=== PATIENT | female | born 1980 | race African-American/Black ===

== ENCOUNTER 2019-07-28 18:45 | Emergency (ER) | payer OTHER, SELFPAY ==
[2019-07-28] MEDS ORDERED: MORPHINE 4 MG/ML SYR ONE (19:52)
[2019-07-28] MEDS ORDERED: ACETAMINOPHEN 500 MG TAB ONE (19:52)
[2019-07-28] MEDS ORDERED: ONDANSETRON 4 MG/2 ML VIAL ONE (19:52)
[2019-07-28] MEDS ORDERED: NA CHLORIDE 0.9% 1,000 ML ONE (19:52)
[2019-07-28 19:57] LABS: Urine Blood NEGATIVE (NEG); Urine Glucose NEGATIVE (NEG); Urine Protein NEGATIVE (NEG)
[2019-07-28 20:11] LABS: Urine Bacteria LOADED /HPF (<20); Urine Culture Reflex Order NOT NEEDED; Urine Mucus 1+ /HPF (NONE SEEN)
[2019-07-28 20:16] LABS: ALT/SGPT 15 U/L (12-78); AST/SGOT 11 U/L (15-37); Albumin 3.5 g/dL (3.4-5.0); Alkaline Phosphatase 59 U/L (45-117); BUN Blood Urea Nitrogen 9 mg/dL (7-18); Bicarbonate 24 mmol/L (21-32); Bilirubin Direct 0.1 mg/dL (0-0.2); Bilirubin Total 0.5 mg/dL (0.2-1.0); Glucose Level 100 mg/dL (74-106); Lipase 91 U/L (73-393); Potassium 3.6 mmol/L (3.5-5.1); Protein, Total 6.8 g/dL (6.4-8.2); Sodium Level 138 mmol/L (136-145)
[2019-07-28 20:34] LABS: Absolute Lymphocytes (CBC) 2.7 K/uL (0.7-4.9); Basophils % 0.3 % (0-1.3); Hematocrit 28.8 % (36.0-45.0); Lymphocytes % 22.3 % (15.3-44.8); MPV 7.8 fL (7.6-11.3); RBC Red Blood Cell Count 4.35 M/uL (3.86-4.86)
[2019-07-28 21:09] LABS: Blood Morphology Comment NOTED (NOT SEEN); Platelet Estimate ADEQ
[2019-07-28 21:10] LABS: Hypochromasia 2+
[2019-07-28] MEDS ORDERED: CEFTRIAXONE/SWI 1gm 1 GM/10 ML SYR ONE (21:23)
[2019-07-28] MEDS ORDERED: KETOROLAC 30 MG/ML INJ ONE (21:27)
[2019-07-29] MEDS ORDERED: MORPHINE 4 MG/ML SYR ONE (00:20)
--- NOTE | 2019-07-29 00:26 | ER ---
Nurse's Notes [facility] Name: Roxann Massey Age: 39 yrs Sex: Female : 1980 Arrival Date: 07/28/2019 Time: 18:47 Bed 5 Private MD: Diagnosis: Other and unspecified ovarian cysts Presentation: 07/28 18:57 Presenting complaint: Patient states: Left lower abdominal pain since this morning that ca1 is really bad. Took ibuprofen this morning, it helped for a few minutes then it comes back. Pain gets worse and worse, and goes to the back. I have not eaten the whole day too since it hurts when I eat. Reports nausea. Denies vomiting and diarrhea. Transition of care: patient was not received from another setting of care. Onset of symptoms was July 28, 2019. Risk Assessment: Do you want to hurt yourself or someone else? Patient reports no desire to harm self or others. Initial Sepsis Screen: Does the patient meet any 2 criteria? No. Patient's initial sepsis screen is negative. Does the patient have a suspected source of infection? No. Patient's initial sepsis screen is negative. Care prior to arrival: None. 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 - Social history:: Smoking status: Patient/guardian denies using tobacco. - Ebola Screening: : Patient negative for fever greater than or equal to 101.5 degrees Fahrenheit, and additional compatible Ebola Virus Disease symptoms Patient denies exposure to infectious person Patient denies travel to an Ebola-affected area in the 21 days before illness onset No symptoms or risks identified at this time. Screenin:39 Abuse screen: Denies threats or abuse. Denies injuries from another. Nutritional ao screening: No deficits noted. Tuberculosis screening: No symptoms or risk factors identified. Fall Risk None identified. Assessment: 19:37 General: Appears in no apparent distress. comfortable, Behavior is calm, cooperative, ao appropriate for age. Pain: Complains of pain in abdomen Pain does not radiate. Pain currently is 8 out of 10 on a pain scale. Neuro: Level of Consciousness is awake, alert, obeys commands, Oriented to person, place, time, situation, Appropriate for age Moves all extremities. Full function Speech is normal, Facial symmetry appears normal. Cardiovascular: Denies chest pain, shortness of breath. Respiratory: Airway is patent Respiratory effort is even, unlabored, Respiratory pattern is regular, symmetrical. GI: Abdomen is non-distended, Bowel sounds present X 4 quads. Abd is soft and non tender Abd is non tender. : No signs and/or symptoms were reported regarding the genitourinary system. EENT: No signs and/or symptoms were reported regarding the EENT system. Derm: Musculoskeletal: Circulation, motion, and sensation intact. Range of motion:. 20:20 Reassessment: Patient appears in no apparent distress at this time. Patient and/or ao family updated on plan of care and expected duration. Pain level reassessed. Recollecting labs. 21:49 Reassessment: Patient appears in no apparent distress at this time. Patient and/or ao family updated on plan of care and expected duration. Pain level reassessed. Patient out for CT. 22:55 Reassessment: Patient appears in no apparent distress at this time. Patient and/or ao family updated on plan of care and expected duration. Pain level reassessed. Waiting in dispo orders. 07/29 00:09 Reassessment: Patient appears in no apparent distress at this time. Patient and/or ao family updated on plan of care and expected duration. Pain level reassessed. Waiting on dispo orders. 00:15 Reassessment: Patient states pain to abdomen returning, Provider notified. lp1 Vital Signs: 07/28 19:01 BP 95 / 80; Pulse 98; Resp 17 S; Temp 101(O); Pulse Ox 100% on R/A; Weight 70.76 kg ca1 (R); Height 5 ft. 9 in. (175.26 cm) (R); Pain 10/10; 20:20 BP 121 / 79; Pulse 84; Resp 16; Pulse Ox 100% on R/A; ao 21:31 Temp 100.1(A); ao 22:53 BP 123 / 75; Pulse 60; Resp 18; Pulse Ox 100% on R/A; ao 07/29 00:09 BP 112 / 80; Pulse 63; Resp 16; Pulse Ox 100% ; ao 07/28 19:01 Body Mass Index 23.04 (70.76 kg, 175.26 cm) ca1 ED Course: 07/28 18:47 Patient arrived in ED. as 19:00 Triage completed. ca1 19:01 Arm band placed on right wrist. ca1 19:07 Kole Lange, GLORY is Primary Nurse. ao 19:19 Rodrigo Chávez MD is Attending Physician. tw4 19:38 Patient has correct armband on for positive identification. Pulse ox on. NIBP on. ao 19:58 Inserted saline lock: 20 gauge antecubital area, using aseptic technique. Blood ao collected. 21:[address] via wheelchair. eh 22:00 CT completed. Patient tolerated procedure well. Patient moved back from CT. eh 22:06 CT Abd/Pelvis - IV Contrast Only In Process Unspecified. EDMS 07/29 00:08 Ultrasound completed. Patient tolerated well. aa4 00:19 US Pelvis Complete In Process Unspecified. EDMS 00:25 Stephen Almonte MD is Referral Physician. tw4 00:25 Adilene Mckinney MD is Referral Physician. tw4 00:25 Katie Del Rosario MD is Referral Physician. tw4 00:52 No provider procedures requiring assistance completed. IV discontinued, intact, ao bleeding controlled, No redness/swelling at site. Pressure dressing applied. Administered Medications: 07/28 19:57 Drug: morphine 4 mg {Note: Rass 0.} Route: IVP; Site: right antecubital; ao 21:19 Follow up: Response: No adverse reaction; RASS: Alert and Calm (0) ao 19:57 Drug: Zofran 4 mg Route: IVP; Site: right antecubital; ao 21:18 Follow up: Response: No adverse reaction ao 19:57 Drug: NS 0.9% 1000 ml Route: IV; Rate: 1 bolus; Site: right antecubital; ao 21:19 Follow up: Response: No adverse reaction; IV Status: Completed infusion; IV Intake: ao 1000ml 19:57 Drug: Tylenol 1000 mg Route: PO; ao 21:31 Follow up: Temp 100.1 Axillary ao 21:29 Drug: Rocephin - (cefTRIAXone) 1 grams Route: IVPB; Infused Over: 30 mins; Site: right ao antecubital; 07/29 00:52 Follow up: IV Status: Completed infusion; IV Intake: 10ml ao 00:52 Follow up: Response: No adverse reaction ao 07/28 21:29 Drug: TORadol 30 mg Route: IVP; Site: right antecubital; ao 22:51 Follow up: Response: No adverse reaction ao 07/29 00:22 Drug: morphine 4 mg Route: IVP; Site: right antecubital; lp1 00:52 Follow up: Response: No adverse reaction ao 00:52 Follow up: Response: No adverse reaction ao Intake: 07/28 21:19 IV: 1000ml; Total: 1000ml. ao 07/29 00:52 IV: 10ml; Total: 1010ml. ao Outcome: 00:25 Discharge ordered by . tw4 00:52 Discharged to home ambulatory, with family, with significant other. ao 00:52 Condition: good 00:52 Discharge instructions given to patient. 00:53 Patient left the ED. ao Signatures: Dispatcher [employer] EDMS Olman Enamorado Amelia as Frazier, Amanda aa4 Kim Berumen RN RN lp1 Kole Lange RN RN Rodrigo Kirkpatrick MD MD tw4 Linda Batista RN RN ca1 Corrections: (The following items were deleted from the chart) 07/28 19:01 18:57 Presenting complaint: Patient states: Left lower abdominal pain since this ca1 morning that is really bad. Took ibuprofen this morning, it helped for a few minutes then it comes back. Pain gets worse and worse, and goes to the back. I have not eaten the whole day too since it hurts when I eat. Reports nausea. Denies vomiting. ca1
--- NOTE | 2019-07-29 00:27 | EDPHYS ---
Physician Documentation [facility] Name: Roxann Massey Age: 39 yrs Sex: Female : 1980 Arrival Date: 07/28/2019 Time: 18:47 Bed 5 Private MD: ED Physician Rodrigo Chávez HPI: 07/29 00:48 This 39 yrs old Black Female presents to ER via Wheelchair with complaints of Abdominal tw4 Pain, Back Pain. 00:48 The patient presents with abdominal pain. Onset: The symptoms/episode began/occurred tw4 today. The symptoms do not radiate. Associated signs and symptoms: none. The symptoms are described as sharp. Modifying factors: The symptoms are alleviated by nothing. Severity of pain: At its worst the pain was moderate in the emergency department the pain is unchanged. The patient has not experienced similar symptoms in the past. 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 - Social history:: Smoking status: Patient/guardian denies using tobacco. - Ebola Screening: : Patient negative for fever greater than or equal to 101.5 degrees Fahrenheit, and additional compatible Ebola Virus Disease symptoms Patient denies exposure to infectious person Patient denies travel to an Ebola-affected area in the 21 days before illness onset No symptoms or risks identified at this time. ROS: 07/29 00:48 Constitutional: Negative for fever, chills, and weight loss, Eyes: Negative for injury, tw4 pain, redness, and discharge, Cardiovascular: Negative for chest pain, palpitations, and edema, Respiratory: Negative for shortness of breath, cough, wheezing, and pleuritic chest pain, Back: Negative for injury and pain, MS/Extremity: Negative for injury and deformity, Skin: Negative for injury, rash, and discoloration, Neuro: Negative for headache, weakness, numbness, tingling, and seizure. Abdomen/GI: Positive for abdominal pain, Negative for nausea and vomiting, nausea, vomiting, and diarrhea, nausea, vomiting, abdominal cramps, abdominal distension, anorexia, black/tarry stool, rectal pain, rectal bleeding, bowel incontinence, flatulence. Exam: 00:48 Constitutional: This is a well developed, well nourished patient who is awake, alert, tw4 and in no acute distress. Head/Face: Normocephalic, atraumatic. Chest/axilla: Normal chest wall appearance and motion. Nontender with no deformity. No lesions are appreciated. Cardiovascular: Regular rate and rhythm with a normal S1 and S2. No gallops, murmurs, or rubs. Normal PMI, no JVD. No pulse deficits. Respiratory: Lungs have equal breath sounds bilaterally, clear to auscultation and percussion. No rales, rhonchi or wheezes noted. No increased work of breathing, no retractions or nasal flaring. 00:48 Abdomen/GI: Inspection: abdomen appears normal, Bowel sounds: normal. Vital Signs: 07/28 19:01 BP 95 / 80; Pulse 98; Resp 17 S; Temp 101(O); Pulse Ox 100% on R/A; Weight 70.76 kg ca1 (R); Height 5 ft. 9 in. (175.26 cm) (R); Pain 10/10; 20:20 BP 121 / 79; Pulse 84; Resp 16; Pulse Ox 100% on R/A; ao 21:31 Temp 100.1(A); ao 22:53 BP 123 / 75; Pulse 60; Resp 18; Pulse Ox 100% on R/A; ao 07/29 00:09 BP 112 / 80; Pulse 63; Resp 16; Pulse Ox 100% ; ao 07/28 19:01 Body Mass Index 23.04 (70.76 kg, 175.26 cm) ca1 MDM: 07/28 19:19 Patient medically screened. tw4 07/29 00:48 Differential diagnosis: diverticulitis, non-specific abd pain, Ovarian Torsion. Data tw4 reviewed: vital signs, nurses notes. Counseling: I had a detailed discussion with the patient and/or guardian regarding: the historical points, exam findings, and any diagnostic results supporting the discharge/admit diagnosis, lab results. 07/28 19:25 Order name: Basic Metabolic Panel tw4 07/28 19:25 Order name: CBC with Diff tw4 12/18 19:25 Order name: Creatinine for Radiology; Complete Time: 21:14 [facility] 07/28 21:15 Interpretation: Within normal limits: CRE 0.65. [facility] 07/28 19:25 Order name: Hepatic Function; Complete Time: 21:14 [facility] 07/28 21:14 Interpretation: Normal except: AST 11. [facility] 07/28 19:25 Order name: Lipase; Complete Time: 21:14 [facility] 07/28 21:15 Interpretation: Normal except: LIP 91. 07/28 19:25 Order name: Basic Metabolic Panel; Complete Time: 21:14 [facility] 07/28 21:15 Interpretation: Within normal limits. [facility] 07/28 19:25 Order name: CBC with Automated Diff; Complete Time: 21:14 [facility] 07/28 21:14 Interpretation: Normal except: WBC 12.2; HGB 8.8; HCT 28.8; MCV 66.1; MCH 20.2; MCHC tw4 30.5; RDW 17.2; NEUT A 8.8. 07/28 19:45 Order name: Urine Dipstick--Ancillary (enter results); Complete Time: 21:14 [facility] 07/28 21:14 Interpretation: Normal except: U NIT POSITIVE; UESTR 1+. [facility] 07/28 19:45 Order name: Urine --Ancillary (enter results); Complete Time: 21:14 [facility] 07/28 19:45 Order name: Urine Microscopic Only; Complete Time: 21:14 [facility] 07/28 21:15 Interpretation: Normal except: UBACT LOADED; URBC 5-10; UWBC 20-50; SQEPI 10-20. [facility] 07/28 19:45 Order name: Urine Culture [facility] 07/28 20:40 Order name: Manual Differential; Complete Time: 21:14 [facility] 07/28 21:15 Interpretation: Normal except: BANDS [F] 6. [facility] 07/28 21:25 Order name: CT Abd/Pelvis - IV Contrast Only [facility] 07/28 22:58 Order name: US Pelvis Complete 07/28 19:25 Order name: IV Saline Lock; Complete Time: 19:58 [facility] 07/28 19:25 Order name: Labs collected and sent; Complete Time: 19:58 [facility] 07/28 19:25 Order name: Urine Dipstick-Ancillary (obtain specimen); Complete Time: 19:51 tw4 07/28 19:25 Order name: Urine Test (obtain specimen); Complete Time: 19:51 tw4 Administered Medications: 07/2857 Drug: morphine 4 mg {Note: Rass 0.} Route: IVP; Site: right antecubital; ao 21:19 Follow up: Response: No adverse reaction; RASS: Alert and Calm (0) ao :57 Drug: Zofran 4 mg Route: IVP; Site: right antecubital; ao 21:18 Follow up: Response: No adverse reaction ao Drug: NS 0.9% 1000 ml Route: IV; Rate: 1 bolus; Site: right antecubital; ao 21: Follow up: Response: No adverse reaction; IV Status: Completed infusion; IV Intake: ao 1000ml Drug: Tylenol 1000 mg Route: PO; ao 21:31 Follow up: Temp 100.1 Axillary ao 21: Drug: Rocephin - (cefTRIAXone) 1 grams Route: IVPB; Infused Over: 30 mins; Site: right ao antecubital; 07/29 00:52 Follow up: IV Status: Completed infusion; IV Intake: 10ml ao 00:52 Follow up: Response: No adverse reaction ao 07/28 21:29 Drug: TORadol 30 mg Route: IVP; Site: right antecubital; ao 22:51 Follow up: Response: No adverse reaction ao 07/29 00:22 Drug: morphine 4 mg Route: IVP; Site: right antecubital; lp1 00:52 Follow up: Response: No adverse reaction ao 00:52 Follow up: Response: No adverse reaction ao Disposition: 07/29/19 00:25 Discharged to Home. Impression: Other and unspecified ovarian cysts. - Condition is Stable. - Discharge Instructions: Urinary Tract Infection, Adult, [id number], Ovarian Cyst, [id number]. - Prescriptions for Ibuprofen 800 mg Oral Tablet - take 1 tablet by ORAL route every 8 hours As needed take with food; 30 tablet. Tramadol 50 mg Oral Tablet - take 1 tablet by ORAL route every 8 hours as needed; 12 tablet. Macrobid 100 mg Oral Capsule - take 1 capsule by ORAL route every 12 hours for 10 days; 20 capsule. - Work release form, Medication Reconciliation Form, Thank You Letter, Antibiotic Education, Prescription Opioid Use form. - Follow up: Private Physician; When: Upon discharge from the Emergency Department; Reason: Recheck today's complaints, Continuance of care. Follow up: Stephen Almonte MD; When: Upon discharge from the Emergency Department; Reason: Recheck today's complaints, Continuance of care. Follow up: Adilene Mckinney MD; When: Upon discharge from the Emergency Department; Reason: Recheck today's complaints, Continuance of care. Follow up: Katie Del Rosario MD; When: Upon discharge from the Emergency Department; Reason: Recheck today's complaints, Continuance of care. - Problem is new. - Symptoms have improved. Signatures: Dispatcher [employer] EDMS Kim Berumen RN RN lp1 Kole Lange RN RN Rodrigo Kirkpatrick MD MD tw4 Linda Batista RN RN ca1 Corrections: (The following items were deleted from the chart) 00:25 00:25 07/29/2019 00:25 Discharged to Home. Impression: Other and unspecified ovarian tw4 cysts. Condition is Stable. Forms are Medication Reconciliation Form, Thank You Letter, Antibiotic Education, Prescription Opioid Use. Follow up: Private Physician; When: Upon discharge from the Emergency Department; Reason: Recheck today's complaints, Continuance of care. Problem is new. Symptoms have improved. tw4 00:53 00:25 07/29/2019 00:25 Discharged to Home. Impression: Other and unspecified ovarian ao cysts. Condition is Stable. Forms are Medication Reconciliation Form, Thank You Letter, Antibiotic Education, Prescription Opioid Use. Follow up: Private Physician; When: Upon discharge from the Emergency Department; Reason: Recheck today's complaints, Continuance of care. Follow up: Stephen Almonte; When: Upon discharge from the Emergency Department; Reason: Recheck today's complaints, Continuance of care. Follow up: Adilene Mckinney; When: Upon discharge from the Emergency Department; Reason: Recheck today's complaints, Continuance of care. Follow up: Katie Del Rosario; When: Upon discharge from the Emergency Department; Reason: Recheck today's complaints, Continuance of care. Problem is new. Symptoms have improved. tw4
[2019-07-29 05:02] VITALS: O2SAT 100
[2019-07-29 05:04] VITALS: TEMP 100.1
[2019-07-29 05:07] VITALS: BP 112/80
--- NOTE | 2019-07-29 08:11 | RAD REPORT ---
EXAM DESCRIPTION: US - Pelvis Complete - 07/29/2019 12:08 am CLINICAL HISTORY: Pelvic pain COMPARISON: CT July 28, 2019 FINDINGS: The uterus measures 11 x 5 x 8 centimeters. Endometrial stripe measures 2 centimeters. Sma ll fibroid is suspected Within the right adnexa is an approximately 5.6 centimeter heterogeneous mass. It contains echogenic areas consistent with fat as well a cystic areas. Blood flow is noted. The left ovary is normal in size and echotexture. The left adnexal unremarkable IMPRESSION: 5.6 centimeter right adnexal mass consistent with dermoid The endometrial stripe is prominent. Followup ultrasound in couple of months recommended for re-evalu ation
--- NOTE | 2019-07-29 10:26 | RAD REPORT ---
EXAM DESCRIPTION: CT - Abdomen Pelvis W Contrast - 07/29/2019 1:25 am CLINICAL HISTORY: 39 years Female ABD PAIN COMPARISON: November 27, 2014. TECHNIQUE: Images were obtained in axial, sagittal, and coronal planes. Intravenous contrast was adm inistered. This exam was performed according to our departmental dose-optimization program which includes use of Automated Exposure Control, adjustment of the mA and/or kV according to patient size and/or use of i terative reconstruction technique. FINDINGS: Complex lesion is again noted involving the right adnexa. The finding displays fatty and s oft tissue components and would be consistent with ovarian dermoid. The finding measures 5.6 x 4.9 x 3.4 cm and has slightly increased in size when correlated with the prior study. Mildly enlarged uteru s. Appendix not well identified however no secondary signs for appendicitis. No bowel obstruction, perfo ration, or inflammation. Marked constipation. Suspected fatty change involving the liver. Unremarkable spleen, pancreas, gallbladder, and adrenal g lands bilaterally. No obstructing renal calcifications bilaterally. Mild calyceal dilatation on right predominantly invo lving the upper pole. No hydronephrosis on left. Unremarkable bladder. Calcification abdominal aorta with no dilatation seen. Unremarkable portal vein. No adenopathy or abn ormal fluid collections seen. Dependent atelectatic change lower lungs bilaterally. No acute osseous abnormality. IMPRESSION: 5.6 cm complex lesion right ovary likely ovarian dermoid slightly increased in size when correlated with the prior study. Correlation with ultrasound of the pelvis to be suggested to entire ly exclude ovarian torsion. Mild right calyceal dilatation. No obstructing renal calcifications bilaterally. Electronically signed by: Snow Horton MD 07/28/2019 10:25 PM [employer] Due to temporary technical issues with the PACS/Fluency reporting system, reports are being signed by the in house radiologist as a courtesy to ensure prompt reporting. The interpreting radiologist is f ully responsible for the content of the report.
== END 2019-07-29 00:53 | disposition home or self-care (01) ==
LOC: ER 18:45
DX: N83.299 Other ovarian cyst, unspecified side (principal)
CPT/HCPCS: 36415; 74177; 76856; 80048; 80076; 81003; 81015; 81025; 83690; 85025; 87077; 87086; 87088; 87186; 96361; 96365; 96366; 96375; 99284; J0696; J2405; J7030; Q9967

== ENCOUNTER 2020-11-12 21:06 | Emergency (ER) | payer SELFPAY ==
--- OUTSIDE RECORDS SUMMARY | 2020-11-12 21:09 | XMS REPORT | Continuity of Care Document ---
:1980 Author Organization [facility] t Address [address] [place] [address] Care Team Providers Name Role Phone Wanda POON Attending Clinician Problems This patient has no known problems. Allergies, Adverse Reactions, Alerts This patient has no known allergies or adverse reactions. Medications This patient has no known medications. Procedures This patient has no known procedures. Encounters Start End Encounter Admission Attending Care Care Encounter Source Date/Time Date/Time Type Type Clinicians Facility Department ID 2020-11-08 2020-11-08 Emergency BABAR Muñoz [id number] 11:54:00 14:36:00 [facility] [id number] Results This patient has no known results.
[2020-11-12 21:45] LABS: Urine Blood 3+ (Negative); Urine Glucose Negative (Negative); Urine Protein 2+ (Negative); Urine Specific Gravity 1.025 (1.005-1.030)
[2020-11-12 21:50] LABS: Urine Specific Gravity/Preg 1.025 (1.005-1.030)
[2020-11-12 22:47] LABS: Urine Bacteria <20 /HPF (<20); Urine RBC >50 /HPF (NONE SEEN)
[2020-11-12] MEDS ORDERED: ONDANSETRON 4 MG/2 ML VIAL ONE (23:15)
[2020-11-12] MEDS ORDERED: MORPHINE 4 MG/ML SYR ONE (23:15)
[2020-11-12 23:46] LABS: Hematocrit 27.4 % (36.0-45.0); MPV 9.1 fL (7.6-11.3); RBC Red Blood Cell Count 4.36 M/uL (3.86-4.86)
[2020-11-12 23:59] LABS: ALT/SGPT 9 U/L (12-78); AST/SGOT 11 U/L (15-37); Albumin 3.3 g/dL (3.4-5.0); Alkaline Phosphatase 54 U/L (45-117); BUN Blood Urea Nitrogen 15 mg/dL (7-18); Bicarbonate 27 mmol/L (21-32); Bilirubin Direct < 0.1 mg/dL (0-0.2); Bilirubin Total 0.1 mg/dL (0.2-1.0); Glucose Level 83 mg/dL (74-106); Lipase 165 U/L (73-393); Potassium 3.7 mmol/L (3.5-5.1); Protein, Total 6.5 g/dL (6.4-8.2); Sodium Level 143 mmol/L (136-145)
--- NOTE | 2020-11-13 00:45 | ER ---
Nurse's Notes [facility] Name: Roxann Massey Age: 40 yrs Sex: Female : 1980 Arrival Date: 11/12/2020 Time: 21:07 Bed 15 Private MD: Diagnosis: Hematuria;Anemia, unspecified;Other and unspecified ovarian cysts Presentation: 11/12 21:24 Chief complaint: Patient states: left groin area pain like a burning feeling started rr5 3-4 days ago. I pee more often than usual. no nausea or vomiting reported, last BM yesterday normal consistency. Coronavirus screen: Client denies travel out of the [place] in the last 14 days. At this time, the client does not indicate any symptoms associated with coronavirus-19. Ebola Screen: Patient negative for fever greater than or equal to 101.5 degrees Fahrenheit, and additional compatible Ebola Virus Disease symptoms Patient denies exposure to infectious person. Patient denies travel to an Ebola-affected area in the 21 days before illness onset. Initial Sepsis Screen: Does the patient meet any 2 criteria? No. Patient's initial sepsis screen is negative. Does the patient have a suspected source of infection? No. Patient's initial sepsis screen is negative. Risk Assessment: Do you want to hurt yourself or someone else? Patient reports no desire to harm self or others. Onset of symptoms was November 2020. 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 - Social history:: Smoking status: unknown Patient/guardian denies using alcohol, street drugs. Screenin:30 Abuse screen: Denies threats or abuse. Denies injuries from another. Nutritional ca1 screening: No deficits noted. Tuberculosis screening: No symptoms or risk factors identified. Fall Risk IV access (20 points). Assessment: 21:30 General: Appears in no apparent distress. uncomfortable, Behavior is calm, cooperative, ca1 appropriate for age. Pain: Complains of pain in left femoral area Pain currently is 9 out of 10 on a pain scale. Pain began 4 - 5 days. Neuro: Level of Consciousness is awake, alert, obeys commands, Oriented to person, place, time, situation. Cardiovascular: Heart tones S1 S2 present Capillary refill < 3 seconds Patient's skin is warm and dry. Respiratory: Airway is patent Respiratory effort is even, unlabored, Respiratory pattern is regular, symmetrical, Breath sounds are clear bilaterally. GI: Abdomen is flat, non-distended, Bowel sounds present X 4 quads. Abd is soft and non tender X 4 quads. : Urine is clear, Reports urgency, urinary frequency. EENT: No signs and/or symptoms were reported regarding the EENT system. Derm: Skin is intact, is healthy with good turgor, Skin is pink, warm \T\ dry. Musculoskeletal: Circulation, motion, and sensation intact. Capillary refill < 3 seconds. 22:30 Reassessment: Patient appears in no apparent distress at this time. Patient is alert, rr5 oriented x 3, equal unlabored respirations, skin warm/dry/pink. review done with additional order made. 23:50 Reassessment: Patient appears in no apparent distress at this time. Patient is alert, rr5 oriented x 3, equal unlabored respirations, skin warm/dry/pink. awaiting for CT scan Patient states feeling better. Patient states symptoms have improved. 11/13 01:00 Reassessment: Patient appears in no apparent distress at this time. discharge rr5 instruction given and explained without complaints made. Vital Signs: 11/12 21:24 BP 123 / 81; Pulse 72; Resp 16; Temp 98.7; Pulse Ox 100% ; Weight 72.57 kg; Height 5 rr5 ft. 9 in. (175.26 cm); Pain 9/10; 23:54 BP 112 / 71; Pulse 70; Resp 17; Pulse Ox 98% ; rr5 11/13 01:05 BP 115 / 62; Pulse 75; Resp 19; Pulse Ox 98% ; rr5 11/12 21:24 Body Mass Index 23.63 (72.57 kg, 175.26 cm) rr5 ED Course: 11/12 21:07 Patient arrived in ED. am4 21:27 Triage completed. rr5 21:28 Arm band placed on right wrist. rr5 21:30 Linda Batista RN is Primary Nurse. ca1 21:30 Corona Page NP is PHCP. pm1 21:30 Rodrigo Chávez MD is Attending Physician. pm1 21:30 Patient has correct armband on for positive identification. Placed in gown. Bed in low ca1 position. Call light in reach. Side rails up X 1. Pulse ox on. NIBP on. Warm blanket given. 22:40 Inserted saline lock: 20 gauge in right forearm, using aseptic technique. Blood rr5 collected. 23:21 CT Stone Protocol In Process Unspecified. EDMS 11/13 00:02 Notified ED physician of a critical lab result(s). Hgb 7.9 yefri from laboratory rr5 called, ED provider aware. 01:00 No provider procedures requiring assistance completed. IV discontinued, intact, rr5 bleeding controlled, No redness/swelling at site. Pressure dressing applied. Administered Medications: 11/12 23:00 Drug: Zofran (Ondansetron) 4 mg Route: IVP; Site: right forearm; rr5 11/13 00:00 Follow up: Response: No adverse reaction; Marked relief of symptoms rr5 11/12 23:02 Drug: morphine 4 mg {Note: rass 0.} Route: IVP; Site: right forearm; rr5 11/13 01:00 Follow up: Response: No adverse reaction; Pain is decreased; RASS: Alert and Calm (0) rr5 Outcome: 00:44 Discharge ordered by MD. pm1 01:00 Discharged to home ambulatory. rr5 01:00 Condition: stable 01:00 Discharge instructions given to patient, Instructed on discharge instructions, follow up and referral plans. medication usage. 01:02 Patient left the ED. rr5 Signatures: Dispatcher [employer] EDWI Corona Page NP TECHNICAL MANAGER pm1 Dawson Aguilar RN RN rr5 Linda Batista RN RN ca1 Janina Bullock am4 Corrections: (The following items were deleted from the chart) 11/12 21:44 21:30 Pain: Complains of pain in left femoral area ca1 ca1 21:44 21:30 : Urine is clear, Reports vaginal bleeding that is spotty, ca1 ca1 21:55 21:30 : Urine is clear, Reports urgency, urinary frequency, vaginal bleeding that is ca1 spotty, ca1
--- NOTE | 2020-11-13 00:45 | EDPHYS ---
Physician Documentation [facility] Name: Roxann Massey Age: 40 yrs Sex: Female : 1980 Arrival Date: 11/12/2020 Time: 21:07 Bed 15 Private MD: ED Physician Rodrigo Chávez HPI: 11/12 21:52 This 40 yrs old Black Female presents to ER via Ambulatory with complaints of Abdominal pm1 pain and left flank pain. 21:52 The patient presents with abdominal pain in the left lower quadrant. pm1 21:52 Onset: The symptoms/episode began/occurred 4 day(s) ago. The symptoms do not radiate. pm1 Associated signs and symptoms: Pertinent positives: frequency and hematuria, Pertinent negatives: chest pain, constipation, diarrhea, fever, shortness of breath. The symptoms are described as burning. Modifying factors: The symptoms are alleviated by nothing, the symptoms are aggravated by nothing. Severity of pain: in the emergency department the pain is actually worse. The patient has not recently seen a physician. 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 - Social history:: Smoking status: unknown Patient/guardian denies using alcohol, street drugs. ROS: 21:52 Constitutional: Negative for fever, chills, and weight loss, Cardiovascular: Negative pm1 for chest pain, palpitations, and edema, Respiratory: Negative for shortness of breath, cough, wheezing, and pleuritic chest pain. 21:52 MS/Extremity: Negative for injury and deformity, Skin: Negative for injury, rash, and discoloration, Neuro: Negative for headache, weakness, numbness, tingling, and seizure. 21:52 Abdomen/GI: Positive for abdominal pain, of the left lower quadrant, Negative for nausea, vomiting, and diarrhea. 21:52 Back: Positive for flank pain, on the left. 21:52 : Positive for urinary frequency, hematuria, Negative for burning with urination, difficulty urinating. Exam: 21:52 Constitutional: This is a well developed, well nourished patient who is awake, alert, pm1 and in no acute distress. Head/Face: Normocephalic, atraumatic. 21:52 Skin: Warm, dry with normal turgor. Normal color with no rashes, no lesions, and no evidence of cellulitis. MS/ Extremity: Pulses equal, no cyanosis. Neurovascular intact. Full, normal range of motion. 21:52 Cardiovascular: Exam negative for acute changes, Rate: normal, Rhythm: regular, Pulses: no pulse deficits are appreciated. 21:52 Respiratory: Exam negative for acute changes, respiratory distress, shortness of breath. 21:52 Abdomen/GI: Inspection: abdomen appears normal, Palpation: abdomen is soft and non-tender, in all quadrants. 21:52 Back: pain, that is mild, of the left low back, normal spinal alignment noted. 21:52 Neuro: Exam negative for acute changes, Orientation: is normal, Mentation: is normal, Motor: is normal, moves all fours. Vital Signs: 21:24 BP 123 / 81; Pulse 72; Resp 16; Temp 98.7; Pulse Ox 100% ; Weight 72.57 kg; Height 5 rr5 ft. 9 in. (175.26 cm); Pain 9/10; 23:54 BP 112 / 71; Pulse 70; Resp 17; Pulse Ox 98% ; rr5 11/13 01:05 BP 115 / 62; Pulse 75; Resp 19; Pulse Ox 98% ; rr5 11/12 21:24 Body Mass Index 23.63 (72.57 kg, 175.26 cm) rr5 MDM: 11/12 21:30 Patient medically screened. pm1 11/13 00:12 Data reviewed: vital signs. Data interpreted: Pulse oximetry: on room air is 98 %. pm1 Interpretation: normal. Counseling: I had a detailed discussion with the patient and/or guardian regarding: the historical points, exam findings, and any diagnostic results supporting the discharge/admit diagnosis, lab results, radiology results, the need for outpatient follow up, an OB/Gyne specialist, to return to the emergency department if symptoms worsen or persist or if there are any questions or concerns that arise at home. 00:36 ED course: Informed the patient that I have a concern for cancer due to hematuria and pm1 right adnexal mass that has not changed in size since last CT. 04/04 21:44 Order name: Urine --Ancillary (enter results); Complete Time: 21:52 tt3 11/12 21:45 Order name: Urine Dipstick-Ancillary; Complete Time: 21:52 EDMS 11/12 21:52 Order name: Urine Microscopic Only; Complete Time: 22:50 pm1 11/12 22:51 Order name: Basic Metabolic Panel; Complete Time: 00:10 pm1 11/12 22:51 Order name: CBC with Diff pm1 11/12 22:51 Order name: Hepatic Function; Complete Time: 00:10 pm1 11/12 21:44 Order name: Urine Test (obtain specimen); Complete Time: 21:46 tt3 11/12 22:51 Order name: CT Stone Protocol pm1 11/12 22:52 Order name: Lipase; Complete Time: 00:10 pm1 11/12 22:52 Order name: IV Saline Lock; Complete Time: 23:18 pm1 11/12 22:52 Order name: Labs collected and sent; Complete Time: 23:18 pm1 11/13 00:06 Order name: Manual Differential EDMS Administered Medications: 11/12 23:00 Drug: Zofran (Ondansetron) 4 mg Route: IVP; Site: right forearm; rr5 11/13 00:00 Follow up: Response: No adverse reaction; Marked relief of symptoms rr5 11/12 23:02 Drug: morphine 4 mg {Note: rass 0.} Route: IVP; Site: right forearm; rr5 11/13 01:00 Follow up: Response: No adverse reaction; Pain is decreased; RASS: Alert and Calm (0) rr5 Disposition: 02:34 Co-signature as Attending Physician, Rodrigo Chávez MD I agree with the assessment and tw4 plan of care. Disposition: 11/13/20 00:44 Discharged to Home. Impression: Other and unspecified ovarian cysts, Hematuria, Anemia, unspecified. - Condition is Stable. - Discharge Instructions: Anemia, Nonspecific, Hematuria, Adult, Ovarian Cyst. - Prescriptions for Macrobid 100 mg Oral Capsule - take 1 capsule by ORAL route every 12 hours for 7 days; 14 capsule. Tramadol 50 mg Oral Tablet - take 1 tablet by ORAL route every 8 hours as needed; 12 tablet. - Medication Reconciliation Form, Thank You Letter, Antibiotic Education, Prescription Opioid Use form. - Follow up: Emergency Department; When: As needed; Reason: Worsening of condition. Follow up: Private Physician; When: 2 - 3 days; Reason: Recheck today's complaints, Continuance of care, Re-evaluation by your physician. - Problem is new. - Symptoms have improved. Signatures: Dispatcher [employer] EDMS Corona Page, APPLICATION SPECIALIST APPLICATION SPECIALIST pm1 Rodrigo Chávez MD MD tw4 Dawson Aguialr RN RN rr5 Ramon Valenzuela tt3 Corrections: (The following items were deleted from the chart) 00:57 00:44 11/13/2020 00:44 Discharged to Home. Impression: Unspecified abdominal pain; pm1 Hematuria. Condition is Stable. Forms are Medication Reconciliation Form, Thank You Letter, Antibiotic Education, Prescription Opioid Use. Follow up: Emergency Department; When: As needed; Reason: Worsening of condition. Follow up: Private Physician; When: 2 - 3 days; Reason: Recheck today's complaints, Continuance of care, Re-evaluation by your physician. Problem is new. Symptoms have improved. pm1 01:02 00:57 11/13/2020 00:44 Discharged to Home. Impression: Other and unspecified ovarian rr5 cysts; Hematuria; Anemia, unspecified. Condition is Stable. Discharge Instructions: Abdominal Pain, Adult. Forms are Medication Reconciliation Form, Thank You Letter, Antibiotic Education, Prescription Opioid Use. Follow up: Emergency Department; When: As needed; Reason: Worsening of condition. Follow up: Private Physician; When: 2 - 3 days; Reason: Recheck today's complaints, Continuance of care, Re-evaluation by your physician. Problem is new. Symptoms have improved. pm1
[2020-11-13 01:10] LABS: Blood Morphology Comment NOTED (NOT SEEN); Hypochromasia 3+; Ovalocytes 1+; Platelet Estimate ADEQ; Polychromasia 1+; Target Cells 1+
[2020-11-13 02:22] VITALS: TEMP 98.7
[2020-11-13 02:23] VITALS: BP 112/71; O2SAT 98
--- NOTE | 2020-11-13 11:22 | RAD REPORT ---
EXAM DESCRIPTION: CT - Stone Protocol - 11/13/2020 2:18 am CLINICAL HISTORY: 40 years, Female, FLANK PAIN COMPARISON: 07/28/2019. TECHNIQUE: Multiple transaxial tomograms of the abdomen and pelvis were performed from the lung base s to the symphysis pubis 3 mm slice thickness at 3 mm interval reconstruction, without administration of IV and oral contrast. Multiplanar reformats in the sagittal and coronal plane were generated and reviewed. An individualized dose optimization technique, Automated Exposure Control, was utilized for the perfo rmed procedure. FINDINGS: The lack of IV and oral contrast limits evaluation of solid organs, subtle lesions cannot be excluded. The lung bases demonstrate to be clear. Grossly the unopacified liver, gallbladder, pancreas, spleen and adrenal glands demonstrate to be wit hin normal limits, no significant focal lesions were identified. The kidneys demonstrate grossly unremarkable, no nephrolithiasis and/or hydronephrosis were identifie d. No focal masses were demonstrated. The ureters displays normal appearance with normal caliber, no hydroureter was seen. Grossly the unopacified stomach, small bowel and large bowel demonstrate to be within normal limits. The lack of intra-abdominal fat greatly limits the evaluation. There is no evidence for bowel dilatat ion/or free air. The appendix is suggested within the right lower quadrant and is unremarkable. The urinary bladder demonstrate to be within normal limits. The uterus demonstrate to be within khushboo l limits. Again there is a right adnexal lesion cannot fat elements inferiorly measuring approximatel y 5.5 x 4.9 x 3.6 cm on axial image 115/139 and coronal image 50/95, previously measured 5.6 x 4.9 x 3.4 cm. The aorta demonstrate to be within normal limits. There is no retroperitoneal lymphadenopat hy. There is no evidence for ascites. The rest of the soft tissue demonstrate to be grossly unremar kable. 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 Recommend surgical evaluation and if not resected, pelvic MRI w/IV contrast, then pelvic US fo llow-up annually. Reference: J Am Alfredo Radiol 2013;10:675-681. If not already done. No evidence for nephrolithiasis and/or hydronephrosis on either side. No evidence for bowel dilatation or free air. Otherwise unremarkable noncontrast CT examination of the abdomen and pelvis. Electronically signed by: Carlos Andrews MD 11/12/2020 11:34 PM CDT Due to temporary technical issues with the PACS/Fluency reporting system, reports are being signed by the in house radiologists without review as a courtesy to insure prompt reporting. The interpreting radiologist is fully responsible for the content of the report.
== END 2020-11-13 01:02 | disposition home or self-care (01) ==
LOC: ER 21:06
DX: N83.209 Unspecified ovarian cyst, unspecified side (principal); R31.9 Hematuria, unspecified; D64.9 Anemia, unspecified
CPT/HCPCS: 36415; 74176; 76377; 80048; 80076; 81003; 81015; 81025; 83690; 85025; 96374; 96375; 99284; J2405